=== PATIENT | female | born 1980 | race Hispanic/Latino ===

== ENCOUNTER 2023-12-21 00:50 | Emergency (ER) | payer MEDICARE, OTHER, SELFPAY ==
[2023-12-21 00:50] VITALS: BMI 28.9
[2023-12-21 00:57] VITALS: BP 108/74
[2023-12-21 01:37] VITALS: BP 104/67
[2023-12-21] MEDS: DILAUDID 1 MG IV ×2 (01:40→03:12)
[2023-12-21] MEDS: OMNIPAQUE 50 ML PO (01:41)
[2023-12-21] MEDS: PROTONIX IV 40 MG IV (01:41)
--- NOTE | 2023-12-21 01:41 | ED.GENMED ---
Addendum entered and electronically signed by Jayce Palma DO 12/21/23 05:17:
Update prior to discharge patient resting comfortably encouraged to follow-up with her specialist [facility]
Original Note:
History of Present Illness
General
Chief Complaint: Abdominal Symptoms
Source: patient and family
Exam Limitations: none
Time Seen by Provider: 12/21/23 01:15
Nursing documentation reviewed up to this point in time: agreed with
Travel History
Have you had any contact with someone who has COVID-19?: No
Do you have any symptoms of coronavirus? Fever > 100 degrees, chills, cough, shortness of breath, sore throat, loss of taste or smell, muscle aches, or headache?: No
History of Present Illness
History of Present Illness:
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
recommend she come to the closest ER she has had an appendectomy and cholecystectomy hysterectomy sounds like a perforation requiring surgery nondrinker non-smoker no fever or chills, no blood in her stool or vomit she is on multiple medications
chronically multiple allergies
Past History
Past History
ED Past Medical History: Other (Eosinophilic esophagitis gastroenteritis)
ED Past Surgical History: Appendectomy, Bowel resection, Cholecystectomy and Gynecological
Social History
Tobacco: Non-smoker
Personal:
Living: with family
Employment: Employed
Review of Systems
Review of Systems
All Other Systems: Not applicable
Phy Exam
Physical Exam
Physical Exam:
Physical Exam
General: 43 female looks uncomfortable
Neck: No jaundice
Heart: s1/s2 regular rate and rhythm, no murmur. equal radial pulses.
Lungs: no acute respiratory distress. clear bilaterally
Abdomen: Mild diffuse tenderness
Neuro: alert and oriented. no focal neurological deficits
Skin: no rash
Psychiatric: well kept. interactive and cooperative
Extremities: no edema.
Course
Orders/Labs/Results
Orders:
Orders
12/21/23 01:31
Urinalysis Reflex To Culture Urgent
Iohexol [Omnipaque] See Protocol PO NOW STA
12/21/23 01:32
CT Abd/pel W Iv And Oral Contr Urgent
Comment:
Reason For Exam: pain colitis
HYDROmorphone [Dilaudid] 1 mg IV NOW STA
Test Result ONCE
12/21/23 01:33
Pantoprazole [Protonix IV] 40 mg IV NOW STA
12/21/23 01:37
CRP [C-Reactive Protein] Urgent
Complete Blood Count/With Diff Urgent
Comprehensive Metabolic Panel Urgent
ESR [Erythrocyte Sed Rate] Urgent
HCG, Serum Qualitative Screen Urgent
Lipase Urgent
12/21/23 01:50
Ondansetron Injectable [Zofran] 8 mg IV NOW STA
12/21/23 01:51
Diphenhydramine [Benadryl] 50 mg IV NOW STA
Hydrocortisone Sod Succinate [Solu-Cortef] 100 mg IV NOW STA
12/21/23 03:06
HYDROmorphone [Dilaudid] 1 mg IV NOW STA
Abnormal Lab Results
12/21/23
01:37
Hct 36.3 L %
(37.0-47.0)
MPV 10.7 H fL
(7.4-10.4)
Glucose 129 H mg/dl
(70-99)
C-Reactive Protein 12.00 H mg/L
(0.0-10.00)
12/21/23 01:37
12/21/23 01:37
Vital Signs
Initial and Last Documented VS:
Initial Vital Signs
Temp Pulse Resp BP Pulse Ox
98.2 F 79 18 108/74 99
12/21/23 00:57 12/21/23 00:57 12/21/23 00:57 12/21/23 00:57 12/21/23 00:57
Last Documented Vital Signs
Temp Pulse Resp BP Pulse Ox
98.2 F 79 17 109/73 99
12/21/23 00:57 12/21/23 03:15 12/21/23 03:15 12/21/23 03:00 12/21/23 00:57
MDM/Problems Addressed
Differential Diagnosis Includes:
Gastroenteritis chronic pain colitis perforation
MDM/Problems Addressed:
Abdominal pain
Chronic conditions affecting care: Previous abdomnial surgery
Acute Exacerbation and/or Progression of Chronic Illness: Previous abdomnial surgery
*Critical Care Note
Total Time (30-74mins, 75-104mins- exclusive of procedures): Not Applicable
Update Note
Update Note:
Update, labs and imaging noted
ED Attending Note
-
Portions of this chart may have been created with voice recognition software.� Occasional wrong word or��sound alike� substitutions may have occurred due to the inherent limitations of voice recognition software.
Discharge Plan
Departure
Patient Disposition: Home (Routine Discharge)
Date of Disposition: 12/21/23
Time of Disposition: 05:09
Patient with high blood pressure during this ER visit?: No
Condition: Good
Discharge Problem:
Abdominal pain
Instructions: Abdominal Pain
Referrals:
Bret Church MD [Family Provider] - Next open appointment
Activity Restrictions/Additional Instructions:
Your blood work and CAT scan showed no acute abnormalities
Follow-up with your specialist at [place] and/or [facility]
Interventions
Interventions:
*Risk Screen - Suicide Last Done: 12/21/23 01:50
*General Assessment Last Done: 12/21/23 01:50
*Neglect/Abuse Screening Last Done: 12/21/23 01:50
*ED COVID-19 Vaccine History Last Done: 12/21/23 01:50
AQ-Gykxza-Guwkekxxiw Assessment Last Done: 12/21/23 01:50
[2023-12-21 01:47] LABS: % Eosinophils 1.6 % (0-6); % Immature Granulocytes 0.1 % (0-0.5); % Lymphocytes 43.5 % (20.5-51.1); % Neutrophils 46.8 % (42.2-75.2); Absolute Basophils 0.1 10^3/uL (0-0.2); Absolute Eosinophils 0.1 10^3/uL (0-0.7); Absolute Monocytes 0.5 10^3/uL (0.1-0.6); Absolute Neutrophils 3.2 10^3/uL (1.4-6.5); Hematocrit 36.3 % (37.0-47.0); Hemoglobin 12.8 g/dL (12.0-16.0); Mean Corp Hgb Conc. 35.3 g/dL (33.0-37.0); Mean Corpuscular Hgb 30.2 pg (27.0-31.0); Mean Corpuscular Volume 85.6 fL (81.0-99.0); Mean Platelet Volume 10.7 fL (7.4-10.4); Nucleated Red Blood Cells % 0 %; Platelet Count 351 10^3/uL (130-400); Red Blood Cell Count 4.24 10^6/uL (4.20-5.40); Red Cell Dist. Width 12.1 % (11.5-14.5); White Blood Cell Count 6.9 10^3/uL (4.8-10.8)
[2023-12-21 02:00] VITALS: BP 110/70
[2023-12-21] MEDS: ZOFRAN 8 MG IV (02:00)
[2023-12-21 02:02] LABS: ALT (SGPT) 23 U/L (0-35); AST (SGOT) 23 U/L (14-36); Albumin 4.3 g/dl (3.5-5.0); Alkaline Phosphatase 111 U/L (38-126); Blood Urea Nitrogen 12 mg/dl (7-17); Calcium 9.3 mg/dl (8.4-10.2); Carbon Dioxide 25 mmol/L (22-30); Chloride 107 mmol/L (98-107); Estimated Creatinine Clearance 121 ml/min; Glucose 129 mg/dl (70-99); Lipase 68 U/L (23-300); Potassium 3.9 mmol/L (3.5-5.1); Sodium 139 mmol/L (135-145); Total Bilirubin 0.4 mg/dl (0.2-1.3); Total Protein 7.3 g/dl (6.3-8.2); eGFR > 60.00
[2023-12-21 02:03] LABS: HCG, Serum Qualitative Screen Negative
[2023-12-21 02:18] LABS: Erythrocyte Sed Rate 20 mm/hour (0-20)
[2023-12-21] MEDS: SOLU-CORTEF 100 MG IV (02:57)
[2023-12-21] MEDS: BENADRYL 50 MG IV (02:58)
[2023-12-21 03:00] VITALS: BP 109/73
[2023-12-21 05:00] VITALS: BP 113/65
== END 2023-12-21 05:40 | disposition home or self-care (01) ==
LOC: EMR 00:50
PROVIDERS: EMERGENCY PHYSICIAN Emergency Medicine; FAMILY PHYSICIAN Internal Medicine
DX: R10.9 Unspecified abdominal pain (principal)
CPT/HCPCS: 99285; 96374; 96375 ×4; 96376; 74177; 80053; 83690; 84703; 85025; 85652; 86140; Q9967

== ENCOUNTER 2024-02-27 06:43 | Inpatient (IN) | payer MEDICARE, OTHER, SELFPAY ==
[2024-02-26 23:00] LABS: % Basophils 0.7 % (0-2); % Eosinophils 0.9 % (0-6); % Immature Granulocytes 0.2 % (0-0.5); % Lymphocytes 23.6 % (20.5-51.1); % Monocytes 6.5 % (1.7-9.3); % Neutrophils 68.1 % (42.2-75.2); Absolute Basophils 0.1 10^3/uL (0-0.2); Absolute Eosinophils 0.1 10^3/uL (0-0.7); Absolute Lymphocytes 2.9 10^3/uL (1.2-3.4); Absolute Monocytes 0.8 10^3/uL (0.1-0.6); Absolute Neutrophils 8.2 10^3/uL (1.4-6.5); Hematocrit 33.1 % (37.0-47.0); Hemoglobin 11.6 g/dL (12.0-16.0); Mean Corpuscular Hgb 30.4 pg (27.0-31.0); Mean Corpuscular Volume 86.6 fL (81.0-99.0); Mean Platelet Volume 10.4 fL (7.4-10.4); Nucleated Red Blood Cells % 0 %; Platelet Count 378 10^3/uL (130-400); Red Blood Cell Count 3.82 10^6/uL (4.20-5.40); Red Cell Dist. Width 11.7 % (11.5-14.5); White Blood Cell Count 12.1 10^3/uL (4.8-10.8)
[2024-02-26 23:17] LABS: ALT (SGPT) 69 U/L (0-35); AST (SGOT) 107 U/L (14-36); Albumin 4.3 g/dl (3.5-5.0); Alkaline Phosphatase 144 U/L (38-126); Blood Urea Nitrogen 6 mg/dl (7-17); Calcium 9.4 mg/dl (8.4-10.2); Carbon Dioxide 25 mmol/L (22-30); Chloride 101 mmol/L (98-107); Glucose 172 mg/dl (70-99); Potassium 3.9 mmol/L (3.5-5.1); Sodium 137 mmol/L (135-145); Total Bilirubin 0.6 mg/dl (0.2-1.3); Total Protein 7.3 g/dl (6.3-8.2); eGFR > 60.00
[2024-02-27] VITALS (19 sets, daily range): BP systolic 97–127; BP diastolic 60–82; BMI 30.3; BMI 30.1
[2024-02-27 00:35] LABS: HCG, Serum Qualitative Screen Negative
[2024-02-27 00:42] LABS: Lipase 56 U/L (23-300)
[2024-02-27 00:45] LABS: Urine Albumin Negative (Neg - Trace); Urine Bilirubin Negative (Negative); Urine Character Clear (Clear); Urine Color Yellow; Urine Glucose Negative (Negative); Urine Ketone Negative (Negative); Urine Leukocyte Trace (Negative); Urine Nitrite Negative (Negative); Urine Occult Blood Trace (Negative); Urine Specific Gravity 1.005 (<1.030); Urine Urobilinogen Negative (Neg - 1+); Urine pH 6.5 (5.0-9.0)
--- NOTE | 2024-02-27 01:09 | ED.GENMED ---
History of Present Illness
<Jimi Sage, DO - Last Filed: 02/27/24 01:17>
General
Chief Complaint: Abdominal Pain
Source: patient and spouse
Exam Limitations: none
Time Seen by Provider: 02/27/24 00:19
Nursing documentation reviewed up to this point in time: agreed with
Travel History
Have you had any contact with someone who has COVID-19?: No
Do you have any symptoms of coronavirus? Fever > 100 degrees, chills, cough, shortness of breath, sore throat, loss of taste or smell, muscle aches, or headache?: No
History of Present Illness
History of Present Illness:
43-year-old female presents emergency room complaining of severe abdominal pain since last night. She has a history of Crohn's and ulcers, and is scheduled for a bowel resection in March at [facility]. She called her team at
[facility] and was told to go to the emergency emergency department.
<Mariel Sam, DO - Last Filed: 02/27/24 07:55>
History of Present Illness
History of Present Illness:
43-year-old female presents emergency room complaining of severe abdominal pain since last night. She has a history of eosinophilic gastritis and ulcers, and is scheduled for a bowel resection in March at [facility]. She called her
team at [facility] and was told to go to the emergency emergency department.
Past History
<Jimi Sage, DO - Last Filed: 02/27/24 01:17>
Past History
ED Past Medical History: Other (Eosinophilic esophagitis gastroenteritis)
ED Past Surgical History: Appendectomy, Bowel resection, Cholecystectomy and Gynecological
Social History
Tobacco: Non-smoker
Personal:
Living: with family
Employment: Employed
Review of Systems
<Jimi Sage, DO - Last Filed: 02/27/24 01:17>
Review of Systems
Allergies reviewed?: Yes
All Other Systems: Not applicable
Constitutional: Reports no symptoms
EENT: Reports no symptoms
Respiratory: Reports no symptoms
Cardiac: Reports no symptoms
ABD/GI: Reports abdominal pain and vomiting
: Reports no symptoms
Musculoskeletal: Reports no symptoms
Skin: Reports no symptoms
Neurological: Reports no symptoms
Endocrine: Reports no symptoms
Hematologic/Lymphatic: Reports no symptoms
Psychiatric: Reports no symptoms
Phy Exam
<Jimi Sage, DO - Last Filed: 02/27/24 01:17>
Physical Exam
Physical Exam:
Physical Exam
General: Appears uncomfortable, afebrile
Neck: supple. no meningeal signs. normal posterior pharynx
Heart: s1/s2 regular rate and rhythm, no murmur. equal radial
pulses.
HEENT: Pupils equal round reactive to light, EOMI
Lungs: no acute respiratory distress. clear bilaterally
Abdomen: normal bowel sounds. Diffuse tenderness palpation, worse in lower quadrant. No CVAT
Neuro: alert and oriented. no focal neurological deficits cranial nerves II through XII intact
Skin: no rash
Psychiatric: well kept. interactive and cooperative
Extremities: no edema. no calf tenderness. negative homans. good distal pulses
Course
<Jimi Sage, DO - Last Filed: 02/27/24 01:17>
Orders/Labs/Results
Orders:
Orders
02/26/24 22:53
Complete Blood Count/With Diff Urgent
Comprehensive Metabolic Panel Urgent
HCG, Serum Qualitative Screen Urgent
Lipase Urgent
Comment: ADDED
Blood Culture Urgent
BHAVIK Source: Blood/Venous
Specimen Description:
02/27/24 00:04
Add On- LAB Urgent
Tests Added?: lipase
02/27/24 00:24
Add On- LAB Urgent
Tests Added?: hcg qualitative
02/27/24 00:26
UA Reflex to Culture [Urinalysis Reflex To Culture] Urgent
Date Specimen was Collected: 02/27/24
Time Specimen was Collected: 00:24
Urine Microscopic Reflex Cult Urgent
Urine Culture Urgent
BHAVIK Source: U
Specimen Description:
Date Specimen was Collected: 02/27/24
Time Specimen was Collected: 00:24
02/27/24 01:07
0.9% Sodium Chloride 1000 ml [Nss] 1,000 ml IV BOLUS
HYDROmorphone [Dilaudid] 0.5 mg IV NOW STA
Iohexol [Omnipaque] See Protocol PO NOW STA
02/27/24 01:08
CT Abd/pel W Iv And Oral Contr Urgent
Comment:
Reason For Exam: lower abdominal pain, crohns
02/27/24 01:16
Diphenhydramine [Benadryl] 25 mg IV NOW STA
02/27/24 01:31
Ondansetron Injectable [Zofran] 4 mg .ROUTE .STK-MED ONE
02/27/24 01:35
Ondansetron Injectable [Zofran] 4 mg IV NOW STA
02/27/24 01:56
HYDROmorphone [Dilaudid] 1 mg IV NOW STA
02/27/24 03:45
Hydrocortisone Sod Succinate [Solu-Cortef] 100 mg IV NOW STA
02/27/24 05:23
0.9% Sodium Chloride 1000 ml [Nss] 1,000 ml IV 200 mls/hr
HYDROmorphone [Dilaudid] 1 mg IV NOW STA
Pantoprazole 80 mg/100 ml Nss [Protonix] 80 mg in 100 ml IV NOW
Pantoprazole [Protonix IV] 80 mg IV NOW STA
02/27/24 06:27
Admit/Transfer Patient As Directed
Co-Sign Provider:
Level of Care: Inpatient admission
Assign to:: IMU- Intermediate Care
Physician / Group: Shashank
Diagnosis: Gastritis / Perforated Gastric Ulcer
Reason for Hospitalization: Gastritis / Perforated Gastric Ulcer
Expected length of stay greater than two midnights?: Yes
ELOS- Estimated Length of Stay in days: 4
I certify the patient meets the requirements for IP care: Yes
02/27/24 06:29
Code Status As Directed
Resuscitation Status: Full Code
02/27/24 07:17
HYDROmorphone [Dilaudid] 1 mg IV Q4HPRN PRN
Lactated Ringers [Lr] 1,000 ml IV 100 mls/hr
Ondansetron Injectable [Zofran] 4 mg IV Q6HPRN PRN
02/27/24 07:17
GASTROINTESTINAL CONSULT Routine
Consulting Provider: Aníbal Mcghee
Was physician already notified: Yes
Reason for consult: Severe gastritis / perf ulcer
SURGICAL CONSULT Routine
Consulting Provider: Mendez Yost
Was physician already notified: Yes
Reason for consult: Gastric Ulcer / Contained perf
Activity As Directed
Activity Level: Ambulate
With Assistance
Bladder Scan As Directed
Follow Bladder Retention/Intermittent Cath Algorithm?: Yes
PRN if no void in __ hours: 6
Frequency: Per Retention Algorithm
If Bladder Scan Result >: 400
then:: Straight cath
EKG with chest pain [ECG as needed] As Directed
ECG as needed for:: Chest Pain
I/O [Intake/ Output] As Directed
Frequency: Per unit guidelines
Orthostatic Vital Signs As Directed
Orthostatic VS Frequency: BID
Pneumatic Compression Sleeves As Directed
Type: Knee high
Straight Cath As Directed
Frequency: Per Retention Algorithm
Additional Instructions: straight cath as needed per acute urinary retention algorithm for 24 hrs
Additional Instructions: for bladder scan greater than 400 mL
Vital Signs As Directed
Frequency: Per unit guidelines
Weight As Directed
Frequency: Daily
Oxygen Therapy [O2 Therapy] [RESP] Routine
Titrate/Wean O2 to maintain O2 sat greater than (%): 94
DX Deep Vein Thrombosis Video Routine
02/27/24 16:00
Pantoprazole 80 mg/100 ml Nss [Protonix] 80 mg in 100 ml IV Q10H
02/28/24 Breakfast
NPO
Allow oral meds: Yes
Allow clear liquids: Sips of Clears
Basic Metabolic Panel IN AM
Complete Blood Count/No Diff IN AM
LFT [[id number]-Weww-Jwolwwx] IN AM
Abnormal Lab Results
02/26/24 02/27/24
22:53 00:26
WBC 12.1 H 10^3/uL
(4.8-10.8)
RBC 3.82 L 10^6/uL
(4.20-5.40)
Hgb 11.6 L g/dL
(12.0-16.0)
Hct 33.1 L %
(37.0-47.0)
Absolute Neuts (auto) 8.2 H 10^3/uL
(1.4-6.5)
Absolute Monos (auto) 0.8 H 10^3/uL
(0.1-0.6)
BUN 6 L mg/dl
(7-17)
Glucose 172 H mg/dl
(70-99)
AST 107 H U/L
(14-36)
ALT 69 H U/L
(0-35)
Alkaline Phosphatase 144 H U/L
(38-126)
Ur Occult Blood Reflex Trace A
(Negative)
Leukocyte Esterase Rfl Trace A
(Negative)
Urine Bacteria (Reflex) Moderate A
(Negative)
02/26/24 22:53
02/26/24 22:53
Vital Signs
Initial and Last Documented VS:
Initial Vital Signs
Temp Pulse Resp Pulse Ox
98.5 F 79 18 97
02/26/24 22:45 02/26/24 22:45 02/26/24 22:45 02/26/24 22:45
Last Documented Vital Signs
Temp Pulse Resp BP Pulse Ox
98.3 F 68 16 119/80 96
02/27/24 07:19 02/27/24 07:30 02/27/24 07:19 02/27/24 07:19 02/27/24 07:30
<Mariel Sam, DO - Last Filed: 02/27/24 07:55>
Orders/Labs/Results
Orders:
Orders
02/26/24 22:53
Complete Blood Count/With Diff Urgent
Comprehensive Metabolic Panel Urgent
HCG, Serum Qualitative Screen Urgent
Lipase Urgent
Comment: ADDED
Blood Culture Urgent
BHAVIK Source: Blood/Venous
Specimen Description:
02/27/24 00:04
Add On- LAB Urgent
Tests Added?: lipase
02/27/24 00:24
Add On- LAB Urgent
Tests Added?: hcg qualitative
02/27/24 00:26
UA Reflex to Culture [Urinalysis Reflex To Culture] Urgent
Date Specimen was Collected: 02/27/24
Time Specimen was Collected: 00:24
Urine Microscopic Reflex Cult Urgent
Urine Culture Urgent
BHAVIK Source: U
Specimen Description:
Date Specimen was Collected: 02/27/24
Time Specimen was Collected: 00:24
02/27/24 01:07
0.9% Sodium Chloride 1000 ml [Nss] 1,000 ml IV BOLUS
HYDROmorphone [Dilaudid] 0.5 mg IV NOW STA
Iohexol [Omnipaque] See Protocol PO NOW STA
02/27/24 01:08
CT Abd/pel W Iv And Oral Contr Urgent
Comment:
Reason For Exam: lower abdominal pain, crohns
02/27/24 01:16
Diphenhydramine [Benadryl] 25 mg IV NOW STA
02/27/24 01:31
Ondansetron Injectable [Zofran] 4 mg .ROUTE .STK-MED ONE
02/27/24 01:35
Ondansetron Injectable [Zofran] 4 mg IV NOW STA
02/27/24 01:56
HYDROmorphone [Dilaudid] 1 mg IV NOW STA
02/27/24 03:45
Hydrocortisone Sod Succinate [Solu-Cortef] 100 mg IV NOW STA
02/27/24 05:23
0.9% Sodium Chloride 1000 ml [Nss] 1,000 ml IV 200 mls/hr
HYDROmorphone [Dilaudid] 1 mg IV NOW STA
Pantoprazole 80 mg/100 ml Nss [Protonix] 80 mg in 100 ml IV NOW
Pantoprazole [Protonix IV] 80 mg IV NOW STA
02/27/24 06:27
Admit/Transfer Patient As Directed
Co-Sign Provider:
Level of Care: Inpatient admission
Assign to:: IMU- Intermediate Care
Physician / Group: Shashank
Diagnosis: Gastritis / Perforated Gastric Ulcer
Reason for Hospitalization: Gastritis / Perforated Gastric Ulcer
Expected length of stay greater than two midnights?: Yes
ELOS- Estimated Length of Stay in days: 4
I certify the patient meets the requirements for IP care: Yes
02/27/24 06:29
Code Status As Directed
Resuscitation Status: Full Code
02/27/24 07:17
HYDROmorphone [Dilaudid] 1 mg IV Q4HPRN PRN
Lactated Ringers [Lr] 1,000 ml IV 100 mls/hr
Ondansetron Injectable [Zofran] 4 mg IV Q6HPRN PRN
02/27/24 07:17
GASTROINTESTINAL CONSULT Routine
Consulting Provider: Aníbal Mcghee
Was physician already notified: Yes
Reason for consult: Severe gastritis / perf ulcer
SURGICAL CONSULT Routine
Consulting Provider: Mendez Yost
Was physician already notified: Yes
Reason for consult: Gastric Ulcer / Contained perf
Activity As Directed
Activity Level: Ambulate
With Assistance
Bladder Scan As Directed
Follow Bladder Retention/Intermittent Cath Algorithm?: Yes
PRN if no void in __ hours: 6
Frequency: Per Retention Algorithm
If Bladder Scan Result >: 400
then:: Straight cath
EKG with chest pain [ECG as needed] As Directed
ECG as needed for:: Chest Pain
I/O [Intake/ Output] As Directed
Frequency: Per unit guidelines
Orthostatic Vital Signs As Directed
Orthostatic VS Frequency: BID
Pneumatic Compression Sleeves As Directed
Type: Knee high
Straight Cath As Directed
Frequency: Per Retention Algorithm
Additional Instructions: straight cath as needed per acute urinary retention algorithm for 24 hrs
Additional Instructions: for bladder scan greater than 400 mL
Vital Signs As Directed
Frequency: Per unit guidelines
Weight As Directed
Frequency: Daily
Oxygen Therapy [O2 Therapy] [RESP] Routine
Titrate/Wean O2 to maintain O2 sat greater than (%): 94
DX Deep Vein Thrombosis Video Routine
02/27/24 16:00
Pantoprazole 80 mg/100 ml Nss [Protonix] 80 mg in 100 ml IV Q10H
02/28/24 Breakfast
NPO
Allow oral meds: Yes
Allow clear liquids: Sips of Clears
Basic Metabolic Panel IN AM
Complete Blood Count/No Diff IN AM
LFT [Pprva-Hdhl-Tqnwfjq] IN AM
Abnormal Lab Results
02/26/24 02/27/24
22:53 00:26
WBC 12.1 H 10^3/uL
(4.8-10.8)
RBC 3.82 L 10^6/uL
(4.20-5.40)
Hgb 11.6 L g/dL
(12.0-16.0)
Hct 33.1 L %
(37.0-47.0)
Absolute Neuts (auto) 8.2 H 10^3/uL
(1.4-6.5)
Absolute Monos (auto) 0.8 H 10^3/uL
(0.1-0.6)
BUN 6 L mg/dl
(7-17)
Glucose 172 H mg/dl
(70-99)
AST 107 H U/L
(14-36)
ALT 69 H U/L
(0-35)
Alkaline Phosphatase 144 H U/L
(38-126)
Ur Occult Blood Reflex Trace A
(Negative)
Leukocyte Esterase Rfl Trace A
(Negative)
Urine Bacteria (Reflex) Moderate A
(Negative)
02/26/24 22:53
02/26/24 22:53
Vital Signs
Initial and Last Documented VS:
Initial Vital Signs
Temp Pulse Resp Pulse Ox
98.5 F 79 18 97
02/26/24 22:45 02/26/24 22:45 02/26/24 22:45 02/26/24 22:45
Last Documented Vital Signs
Temp Pulse Resp BP Pulse Ox
98.3 F 68 16 119/80 96
02/27/24 07:19 02/27/24 07:30 02/27/24 07:19 02/27/24 07:19 02/27/24 07:30
<Mariel Sam, DO - Last Filed: 02/27/24 07:55>
*Radiology
Radiology exam reviewed: radiology read reviewed
*Pulse Oximetry
Patient hypoxic: no
*Critical Care Note
Total Time (30-74mins, 75-104mins- exclusive of procedures): Not Applicable
<Mariel Sam DO - Last Filed: 02/27/24 07:55>
Update Note
Update Note:
02/27/2024 0519 AM
CAT scan shows severe gastritis with likely a contained ulcer perforation versus impending perforation along the lesser curvature. There is no free air nor free fluid.
Patient has history of eosinophilic gastritis and prior history of perforated peptic ulcer 1 year ago. She has history of chronic gastric/esophageal strictures with thus far no improvement with esophageal/gastric dilation procedures most recently
October 2023.
She is scheduled for gastric surgery/gastric bypass procedure and PEG tube placement next month at [facility].
She presents with significant increased pain and intractable vomiting over the past 24 hours unrelieved with oxycodone and Zofran.
Her daily medications include: Esomeprazole twice daily, Zofran, oxycodone 10 mg 3 times daily, baclofen, doxepin, Cymbalta, Lyrica, Seroquel, Latuda, Rixulti.
Will initiate Protonix bolus and drip, continue IV fluids, continue pain medications and plan to admit to hospitalist service.
Patient will likely require GI evaluation/general surgery evaluation but at this point there is no definitive evidence of perforation.
ED Attending Note
<Jimi Sage, DO - Last Filed: 02/27/24 01:17>
-
Portions of this chart may have been created with voice recognition software.� Occasional wrong word or��sound alike� substitutions may have occurred due to the inherent limitations of voice recognition software.
Discharge Plan
Departure
Patient Disposition: Admit
Date of Disposition: 02/27/24
Time of Disposition: 05:24
Admit to: Med/Surg
Admit to doctor: Shashank
Presentation/result/management discussed w/ accepting MD/DO: Hospitalist
Condition: Serious
Discharge Problem:
severe gastritis with ulcer, Exacerbation of eosinophilic gastritis, peptic ulcer concern for impending perf
Interventions
Interventions:
*Risk Screen - Suicide Last Done: 02/27/24 00:27
*General Assessment Last Done: 02/27/24 00:27
*Neglect/Abuse Screening Last Done: 02/27/24 00:27
ED- Fall Risk Assessment Last Done: 02/27/24 00:39
*ED COVID-19 Vaccine History Last Done: 02/27/24 00:27
FX-Xziptn-Rvdzyzmcal Assessment Last Done: 02/27/24 07:19
[2024-02-27 01:16] LABS: Urine Squamous Cell >30 /LPF (Few)
[2024-02-27 01:17] LABS: Urine Bacteria Moderate (Negative); Urine Red Blood Cell 0-2 /HPF (0-2)
[2024-02-27] MEDS: DILAUDID 0.5 MG IV (01:28)
[2024-02-27] MEDS: BENADRYL 25 MG IV (01:28)
[2024-02-27] MEDS: NSS 1000 IV ×2 (01:29→06:00)
[2024-02-27] MEDS: ZOFRAN 4 MG IV ×4 (01:35→22:53)
[2024-02-27] MEDS: OMNIPAQUE 50 ML PO (01:37)
[2024-02-27] MEDS: DILAUDID 1 MG IV ×6 (01:59→22:51)
[2024-02-27] MEDS: SOLU-CORTEF 100 MG IV (03:53)
[2024-02-27] MEDS: PROTONIX IV 80 MG IV (05:44)
[2024-02-27] MEDS: PROTONIX 100 IV ×3 (06:00→16:41)
--- NOTE | 2024-02-27 06:38 | HPS.HSE ---
Family Physician
-
Family Physician: Bret Church MD
Chief Complaint
-
Abd pain
History of Present Illness
Patient is a 43y F with PMH significant for eosinophilic gastritis, prior perforate peptic ulcers and Bipolar / schizophrenia who presents to ED complaining of abdominal pain. Patient states that symptoms initially started on Saturday evening
after dinner. She was able to get to sleep, but pain was still present in the AM and persisted throughout the day. Pain was much more severe this evening and patient presented to the ED for evaluation.
Patient states that she has been having N/V for the past 2 months. This is reportedly due to gastric outlet obstruction from prior surgery / gastritis / etc.
Patient has history of perforated gastric ulcers (x 2) in 09/2022 requiring surgical repair ([facility]). She has since been followed at [facility].
Most recently, she has had N/V as noted above and states that she is scheduled for surgery on March [address] Tristan Forrest.
Patient denies any bloody emesis. No black, tarry stools or grossly bloody stools.
Medical History
Past Medical History
Past Medical History: Reports Other
Additional Past Medical History:
Eosinophilic Gastritis / Esophagitis
History of Perforated Gastric Ulcers (09/2022)
Bipolar Disorder
Schizophrenia
Fibromyalgia
Endometriosis
Past Surgical History: Reports Other
Additional Past Surgical History:
Perforate Gastric Ulcer Repair (09/2022)
JORGE
Appendectomy
Cholecystectomy
Social History
Tobacco: Former Smoker (Quit smoking 09/2022.)
Alcohol: None
Drug: None
Family History
Family History: Not pertinent
Allergies / Home Medications
Allergies reflects when Allergies were last updated in [employer].
Home Medications with original date entered in [employer]
Allergy/Medication List:
Patient cannot recall her current doses of medications. Her med list without dose / frequency is as follows:
Doxepin
Rexulti
Latuda
Seroquel
Esomeprazole 40mg PO BID
Zofran
Oxycodone 10mg PO TID
Baclofen
Lyrica
Cymbalta
If medication reconciliation has not been performed, why?: Medication List N/A (Patient cannot recall doses.)
Review of Systems
-
History Source: Patient
A 12 point ROS was completed and negative except as noted: Yes
Constitutional: Reports Fatigue; Denies Fever or Chills
Respiratory: Denies Cough or Trouble Breathing
Cardiac: Denies Chest Pain or Palpitations
Abdomen/GI: Reports Abdominal Pain, Nausea, Vomiting and Anorexia; Denies Diarrhea, Constipated, Bloody Stools or Black Stools
: Denies Dysuria or Frequency
Musculoskeletal: Denies Joint Pain or Edema
Neurological: Reports Dizzy; Denies Headache, Weakness or Numbness
Psych: Denies Depression or Anxiety
Physical Exam
Vital Signs
Vital Signs
Temp Pulse Resp BP Pulse Ox
98.5 F 79 18 121/82 94
02/26/24 22:45 02/26/24 22:45 02/26/24 22:45 02/27/24 06:00 02/27/24 06:00
Physical Exam
General: Other (43y F in mild distress due to pain.)
HEENT: Moist mucous membranes and PERRLA
Respiratory: Clear; No Wheezes, Rales or Rhonchi
Cardiac: S1/S2 and Regular Rhythm; No Murmur
GI: Other (Soft, pos tenderness across upper abdomen with voluntary guarding. No rebound. Bowel sounds are present.)
Musculoskeletal: No Clubbing, No Cyanosis and No Edema
Neuro: AO x 3
Laboratory Results
-
02/26/24 22:53
04/17/24 22:53
Laboratory Results
Total Bilirubin 0.6 mg/dl (0.2-1.3) 02/26/24 22:53
AST 107 U/L (14-36) H 02/26/24 22:53
ALT 69 U/L (0-35) H 02/26/24 22:53
Alkaline Phosphatase 144 U/L (38-126) H 02/26/24 22:53
Lipase 56 U/L (23-300) 02/26/24 22:53
Impression/Plan
-
A/P: Patient is a 43y F with PMH significant for eosinophilic esophagitis / gastritis who presents to ED complaining of severe abdominal pain x 24 hours.
Severe Gastritis
Gastric Ulcer with Contained / Small Perforation
Eosinophilic Esophagitis / Gastritis
- Admit to IMU for further evaluation and treatment.
- Strict NPO.
- IVF support, pain control, IV PPI infusion.
- GI and Surgery consulted.
- With previous known issues (see below) - ? transfer to [facility] s/o Dr. Forrest, especially if intervention is deemed necessary.
- Follow for any new / worsening symptoms.
Gastric Outlet Obstruction
Persistent / Chronic N/V
- Patient notes gastric outlet narrowing secondary to eosinophilic inflammation as well as post-surgical changes / scarring from prior surgery / perforated ulcers.
- Scheduled for surgery at [facility] on March [address] Tristan Forrest.
Mental Health
- Various diagnoses including schizophrenia, bipolar disorder, major depression, etc.
- Hold all PO medications acutely given ulceration / likely perforation.
- Resume PO meds when appropriate to do so.
Chronic Pain Syndrome
Fibromyalgia
Chronic Opioid Dependence
- As noted above - holding all PO medications.
- IV narcotics as needed for acute pain.
- Resume PO regimen when appropriate to do so.
DVT Prophylaxis: SCDs
Code Status: Full
--- NOTE | 2024-02-27 07:23 | EDRN ---
the pt was received by previous cooky packer RN, the pt is resting in stretcher in the lowest position, side rails up x2, call hu within reach, HOB elevated, the pts is currently at the pts bedside, VS WNL, the pt c/o left lower abdominal
pain, this RN called pharmacy and notified them that admission orders were processed, this RN asked the pt if she knows what prescription medications she takes and the pt stated that she does know them however she does not know the dosages, this RN
will notify pharmacy when they arrive, the pt has a LAC #20 PIV and the pt currently has Protonix gtt currently running at 8mg/hour and the pt has IVF's running, the pt is able to ambulate to the bathroom x1 assist, will continue to monitor the pt
closely
[2024-02-27] MEDS: LR 1000 IV ×2 (08:19→21:26)
--- NOTE | 2024-02-27 08:54 | CON.GI ---
Consultation
-
Date/Time Consultation Requested: 02/27/24
Date/Time Consultation Performed: 02/27/24
Requesting Provider: Federico Encarnacion
Performing Provider: Adrianne Mendoza
Reason for Consultation: Perforated gastric ulcer
Medical History
Chief Complaint / HPI
Chief Complaint: Abdominal pain
History of Present Illness:
Izzy is a 43-year-old female with past medical history of bipolar/schizophrenia, eosinophilic gastritis, history of perforated peptic ulcers who presents with abdominal pain, with imaging concerning for contained perforation. She reports prior
gastric ulcers x 2 in September 2022 requiring surgical repair (alan patch), this was performed at [facility]. She now follows at [facility], states she has been having nausea and vomiting for the last 2 months, given a diagnosis of gastric
outlet obstruction with plans for surgery by Dr. Tristan Forrest scheduled for March 25. CAT scan from 12/21/2023 shows a small umbilical hernia containing a loop of unremarkable bowel. Prior cholecystectomy. Mild biliary tract prominence likely
sequela of prior cholecystectomy. Prior hysterectomy and appendectomy. Limited evaluation due to lack of oral contrast.
She does not recall where/when she was given a dx of eosinophilic gastritis, reports that her daughter has eosinophilic esophagitis. States the only tx she has been given for this is PPI, carafate, zofran. Denies ever being treated with steroids in
the past for this. Denies EtoH, drug use or NSAID use. Reports taking Tylenol on a daily basis-- typically 1-2 tablets of 650 mg daily. She is also on chronic opioids for chronic pain/fibromyalgia.
Labs on arrival with mild leukocytosis of 12.1, hemoglobin 11.6, MCV 86.6, platelets 378, BUN 6, creatinine 0.6,, AST 107, ALT 69, alkaline phosphatase 144, normal total bilirubin. Of note she had normal LFTs on 12/21/2023.
CT A/P w/ PO and IV contrast: Moderate bowel wall thickening at the body and antrum measuring up to 1 cm in diameter w/ moderate inflammatory stranding in adjacent fat. There is an extraluminal collection along the lesser curvature of the antrum of
the stomach c/w abscess, which could be in setting of perforated ulcer. There is also a curvilinear gas collection @ the duodenal bulb which appears intraluminal and may reflect site of ulceration. Evidence of cholecystectomy. 2 cm umbilical hernia
which contains a loop of small bowel w/o associated obstruction or strangulation.
Unable to see reports in chart from prior GI workup, however, patient was able to access her [facility] portal on her phone and allowed me to document pertinent information:
EGD (10/2023): Normal esophagus. Small amount of food residue in stomach. Gastric stenosis was found at the pylorus, this was dilated. Biopsies from small intestine were normal. Biopsies taken from the stomach showed moderate chronic gastritis,
focally active, negative for HP and IM. No evidence of eosinophils..
EGD (01/2023): Need report-- similar to above
UGI series (03/07/23): Abnromal esohpageal peristalsis with stasis of contrast in the thoracic esophagus. Small volume of spontaneous gastroesophageal reflux. Large amount of debris is sesen in the stomach. There is a short segment stricutre at the
pylori-duodenal junction measuring at most 3 mm in length with an opening measuring approx. 4 mm which correlates to the pyloric stricture found on EGD. The stricture causes rapid post-stenotic flow. The duodenojejunal junction is normal in anatomic
location. Gastric emptying is substanially delayed.
MRI Abdomen/Pelvis (04/01/23):benign hepatic shunts and geographic focal steatosis. Space-occupying hepatic masses excluded. Moderate diffuse hepatic steatosis.
Past Medical History
Past Medical History: Fibromyalgia, Psychiatric and Other
Past Surgical History: Appendectomy, Cholecystectomy and Gynecological
Social History
Tobacco: Former Smoker
Alcohol: None
Drug: None
Family History
Family History: Other (Daughter with EoE)
Allergies / Home Medications
Allergy/AdvReac Type Severity Reaction Status Date / Time
metoclopramide [From Reglan] Allergy Itching Verified 12/21/23 00:57
Penicillins Allergy Swelling Verified 02/10/24 00:57
prochlorperazine Allergy Itching Verified 12/21/23 00:57
[From Compazine]
contrast dye Allergy Itching Uncoded 12/21/23 00:57
�Medication �Instructions �Recorded
acetaminophen 650 mg 650 mg PO BIDPRN PRN mild pain 02/27/24
tablet,extended release
albuterol sulfate 90 mcg/actuation 2 puff inhalation R Q4HPRN PRN 02/27/24
aerosol inhaler (Ventolin HFA) sob/wheezing
baclofen 10 mg tablet 10 mg PO TID 02/27/24
brexpiprazole 2 mg tablet (Rexulti) 2 mg PO BID 02/27/24
doxepin 100 mg capsule 100 mg PO BID 02/27/24
duloxetine 60 mg capsule,delayed 60 mg PO BID 02/27/24
release
esomeprazole magnesium 40 mg 40 mg PO DAILY 02/27/24
capsule,delayed release
fluticasone furoate 50 50 mcg inhalation R DAILY 02/27/24
mcg/actuation blister powder for
inhalation (Arnuity Ellipta)
lurasidone 60 mg tablet 60 mg PO HS 02/27/24
oxycodone 10 mg tablet 10 mg PO TID 02/27/24
pregabalin 150 mg capsule 150 mg PO TID 02/27/24
quetiapine 25 mg tablet 25 mg PO TID 02/27/24
Review of Systems
-
All other systems: A 12 pt ROS was Negative except as stated above in HPI
Vital Signs
Temp Pulse Resp BP Pulse Ox
98.3 F 78 16 127/79 97
02/27/24 07:19 02/27/24 08:15 02/27/24 07:19 02/27/24 08:00 02/27/24 08:15
Physical Exam
Exam
General: Well Developed, Well Nourished and Pain
HEENT: Normocephalic, Anicteric and Moist Mucous Membranes
Respiratory: Clear and Non Labored Respirations
Cardiac: S1/S2 and Regular Rhythm
Breast: Deferred by me
GI: Soft, Non Distended, Tender and Other (+TTP in epigastrium and LUQ, no rebound, +voluntary gaurding)
Skin: Warm and Dry
Neuro: AO x 3
Psych: Calm
Results
WBC 12.1 10^3/uL (4.8-10.8) H 02/26/24 22:53
Hgb 11.6 g/dL (12.0-16.0) L 02/26/24 22:53
Hct 33.1 % (37.0-47.0) L 02/26/24:53
MCV 86.6 fL (81.0-99.0) 02/26/24 22:53
Plt Count 378 10^3/uL (130-400) 02/26/24 22:53
Absolute Neuts (auto) 8.2 10^3/uL (1.4-6.5) H 02/26/24 22:53
Sodium 137 mmol/L (135-145) 02/26/24 22:53
Potassium 3.9 mmol/L (3.5-5.1) 02/26/24 22:53
Chloride 101 mmol/L (98-107) 02/26/24 22:53
Carbon Dioxide 25 mmol/L (22-30) 02/26/24 22:53
BUN 6 mg/dl (7-17) L 02/26/24 22:53
Creatinine 0.6 mg/dL (0.6-1.0) 02/26/24 22:53
Calcium 9.4 mg/dl (8.4-10.2) 02/26/24 22:53
Total Bilirubin 0.6 mg/dl (0.2-1.3) 02/26/24 22:53
AST 107 U/L (14-36) H 02/26/24 22:53
ALT 69 U/L (0-35) H 02/26/24 22:53
Alkaline Phosphatase 144 U/L (38-126) H 02/26/24 22:53
Lipase 56 U/L (23-300) 02/26/24 22:53
Diagnostic Image Results:
Prior GI Procedures:
EGD:
Colonoscopy:
Assessment / Plan
-
Izzy is a 43 y.o. female with pmhx PUD c/b perforation x2 s/p alan patch repair, pyloric stenosis s/p pyloric dilation, fatty liver, who presents with abdominal pain found to have a contained gastric perforation with small abscess.
#Contained gastric perforation, small abscess
-hx prior PUD w/ perforation s/p alan patch. Unclear if similar area of initial ulcer. If able to obtain records, this could be helpful
-transfer to tertiary care center ([facility]) when bed available
-recommend covering with broad spectrum abx
-No role for endoscopic intervention at this time
-General surgery is consulted
-continue PPI gtt
-NPO
#Elevated LFTs- hepatocellular pattern, AST > ALT
-Check EtoH level, check UDS
-check hemolysis labs, CK
-Prior MRI from patient's portal reviewed-- known benign hepatic shunts, severe hepatic steatosis; given age and potential concomitant autoimmune condition, would check autoimmune serologies
-check tylenol and salicylate level-- patient endorses daily tylenol but no more than 1300 mg daily
#Eosinophilic gastritis--questionable diagnosis, most recent gastric biopsies show gastritis
-it is unclear if she was ever given this diagnosis, no formal treatment was ever initiated and without evidence of eosinophils on most recent biopsies, I am not sure if this is accurate
-outpatient follow-up
#GOO?
-reported by patient, records reviewed, she has known pyloric stenosis, resulting in underlying dysmotility/gastroparesis type of picture
-s/p dilation without improvement, discussion with Dr. Forrest regarding surgical intervention-- prepyloric bypass. If no improvement with dilation, she would be unlikely to benefit from POEM and additionally, prior surgeries likely preclude her
from this as well
-no evidence of obstruction on imaging
Data Reviewed
-
Radiology: Report Reviewed by me
CT Scan: Report Reviewed by me
MRI: Report Reviewed by me
Old Records: Reviewed
-
-
Thank you for consultation and allowing me to participate in the patient's care. Please call the telephonic nurse case manager GI physician during the after hours with any questions or concerns.
--- NOTE | 2024-02-27 09:10 | EDRN ---
the pt pressed the call hu and stated that she needed to urinate,the pt was able to ambulate to the bathroom x1 assist, no c/o dizziness, no c/o lightheadedness, the pt was able to ambulate back to the stretcher with no issues, the pt is now
resting in stretcher in the lowest position, side rails up x2, call hu within reach, HOB elevated, no s/s of distress, the pt has no c/o nausea, c/o left sided abdominal pain 01/18, the pt currently has LR running at 100cc/hour and Protonix is
currently still running at 8mg/hour, will continue to monitor the pt closely
--- NOTE | 2024-02-27 09:58 | EDRN ---
GI currently at the pts bedside speaking with the pt and the pts
--- NOTE | 2024-02-27 10:22 | EDRN ---
this RN spoke with Dr. Elias who wants the pt to be Med Surg instead of IMU
--- NOTE | 2024-02-27 12:16 | EDRN ---
the pt is resting in stretcher in the lowest position, side rails up x2, call hu within reach, HOB elevated, no s/s of distress, VS WNL, the pt has been ambulating to and from the bathroom x1 assist, the pt currently still has Lactated Ringers and
Protonix gtt's infusing, still awaiting for a room for the pt, will continue to monitor the pt closely
--- NOTE | 2024-02-27 13:37 | EDRN ---
the pt was brought to ED Bed #18 and verbal report was given to the receiving nurse Kimberli PARKER
--- NOTE | 2024-02-27 14:13 | W.PN.HOSP.TC ---
Today's Communication/Plan
-
Bowel rest
IV fluids
IV PPI
IV antibiotics
GI/surgery evaluation
Assessment / Plan
Assessment / Plan
Impression:
Patient is a 43y F with PMH significant for eosinophilic esophagitis / gastritis who presents to ED complaining of severe abdominal pain x 24 hours.
Contained gastric ulcer perforation
Elevated LFTs, hepatocellular pattern
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
Concern for gastric outlet obstruction
Chronic pain syndrome
Psychiatric history including schizophrenia, bipolar disorder, major depression
Plan:
Severe gastritis.
Gastric ulcer with contained perforation, possible abscess
Hemodynamically stable, afebrile.
Eosinophilic esophagitis/gastritis with prior history of perforation
CT imaging reviewed with radiologist confirming contained perforation with no free air. Imaging not suggestive of gastric outlet obstruction
Discussed with gastroenterology.
Continue bowel rest
IV PPI
IV fluids
Analgesic regimen with opiates.
Add antibiotics/cefepime (penicillin allergy)
Surgery consultation
Primary surgery at [facility] Dr. Forrest. May require transfer if unfavorable progression and clinically necessary
Gastric outlet obstruction by history
Patient has a history of pyloric stenosis.
Current imaging not consistent with acute obstruction.
Patient is scheduled for pyloric bypass surgery at [facility] from March 25
Elevated LFTs, AST greater than ALT.
In review of prior imaging consistent with hepatic steatosis.
Agree with checking alcohol/Tylenol levels
Follow
Mental Health
- Various diagnoses including schizophrenia, bipolar disorder, major depression, etc.
- Hold all PO medications acutely given ulceration / likely perforation.
- Resume PO meds when appropriate to do so.
Chronic Pain Syndrome
Fibromyalgia
Chronic Opioid Dependence
- As noted above - holding all PO medications.
- IV narcotics as needed for acute pain.
- Resume PO regimen when appropriate to do so.
DVT Prophylaxis: SCDs
Anticipated Discharge: > 48 hours
Subjective/Interval History
-
Date of Service: February 27, 2024
Objective Data
-
Vital Signs:
Vital Signs
Temp Pulse Resp BP Pulse Ox
97.6 F 86 16 123/68 98
02/27/24 12:17 02/27/24 12:17 02/27/24 12:17 02/27/24 12:17 02/27/24 12:17
Physical Exam
-
General: Well Developed and No Apparent Distress
HEENT: Normocephalic, Atraumatic and Moist Mucous Membranes
Respiratory: Clear to Auscultation
Cardiac: Regular Rhythm and S1/S2; Negative Murmur, Rub or Gallop
GI: Soft, Nontender, Nondistended and Normal Bowel Sounds; Negative Organomegaly
Rectal: Deferred by Provider
Musculoskeletal: No Clubbing, No Cyanosis and No Edema
Skin: Negative Rash
Neuro: Nonfocal/Grossly Intact
[2024-02-27 15:23] LABS: Acetaminophen < 10 ug/ml (10-30); Creatine Phosphokinase 57 U/L (30-135); LDH 177 U/L (120-246); Salicylate < 1.0 mg/dl (2.0-20.0)
[2024-02-27 15:24] LABS: Alcohol None Detected
[2024-02-27] MEDS: MAXIPIME 2000 MG IV ×2 (16:56→23:36)
[2024-02-27] MEDS: STERILE WATER FOR INJECTION 10 ML IV ×2 (16:57→23:36)
[2024-02-27 17:16] LABS: Amphetamines Negative (Negative); Barbiturates Negative (Negative); Benzodiazepines Negative (Negative); Buprenorphine Negative (Negative); Cocaine Negative (Negative); Marijuana Positive (Negative); Methadone Negative (Negative); Methamphetamines Negative (Negative); Opiates Positive (Negative); Phencyclidine Negative (Negative); Tricyclic Antidepressants Positive (Negative)
[2024-02-27 17:31] LABS: Fentanyl, Urine Negative (Negative)
--- NOTE | 2024-02-27 18:39 | PTCARENOTE ---
Pt received from ED via wheelchair. Ambulated from wheelchair to standing scale and room with stand by assist of 1.
--- NOTE | 2024-02-27 19:47 | CON.GS ---
Consultation
-
Performing Provider: Aiden
Reason for Consultation: Contained perforated ulcer
Medical History
-
Chief Complaint: Abdominal pain, acute on chronic
History of Present Illness:
Patient is a 43-year-old female who has a known history of complicated peptic ulcer disease having undergone laparotomy, Sammy patch repair perforated gastric ulcer x 2 in 2021 at outside hospital. She has recovered from this but has had
subsequent development of a suspected peptic stricture. This has been apparently managed at [facility] for the past few months and she has undergone previous upper endoscopy with balloon dilation without significant improvement. She states that she
was scheduled to meet with her surgeon in early March with anticipated surgical management of her complicated peptic ulcer disease on 03/25/[address] [facility].
She reports a chronic history of left upper quadrant epigastric and back pain on a daily basis. It was stable for the past few weeks without any acute change. Over the past few days however she developed worsening abdominal pain particularly
overnight and in the left upper quadrant prompting emergency department evaluation. No fevers chills or sweats. She has had nausea with intermittent vomiting. She was found to have a suspected contained gastric perforation of her chronic ulcer
disease. Since admission overnight she states that she still has pain but she feels much better. She has not had any further nausea or vomiting. Pain is still localized to the epigastric and left upper quadrant and not generalized. No fevers
chills or sweats. Per
Past Medical History
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
Past Surgical History: Appendectomy, Cholecystectomy and Other (Exploratory laparotomy Sammy patch repair perforated gastric ulcers 2021)
Social History
Tobacco: Former Smoker
Alcohol: None
Family History
Family History: Reviewed & Not Pertinent
Allergies / Home Medications
Allergy/AdvReac Type Severity Reaction Status Date / Time
metoclopramide [From Reglan] Allergy Itching Verified 12/21/23 00:57
Penicillins Allergy Swelling, Verified 02/27/24 16:28
tolerates
amoxicillin
prochlorperazine Allergy Itching Verified 12/21/23 00:57
[From Compazine]
contrast dye Allergy Itching Uncoded 12/21/23 00:57
�Medication �Instructions �Recorded �Confirmed �Type
acetaminophen 650 mg 650 mg PO BIDPRN PRN mild pain 02/27/24 02/27/24 History
tablet,extended release
albuterol sulfate 90 mcg/actuation 2 puff inhalation R Q4HPRN PRN 02/27/24 02/27/24 History
aerosol inhaler (Ventolin HFA) sob/wheezing
baclofen 10 mg tablet 10 mg PO TID 02/27/24 02/27/24 History
brexpiprazole 2 mg tablet (Rexulti) 2 mg PO BID 02/27/24 02/27/24 History
doxepin 100 mg capsule 100 mg PO BID 02/27/24 02/27/24 History
duloxetine 60 mg capsule,delayed 60 mg PO BID 02/27/24 02/27/24 History
release
esomeprazole magnesium 40 mg 40 mg PO DAILY 02/27/24 02/27/24 History
capsule,delayed release
fluticasone furoate 50 50 mcg inhalation R DAILY 02/27/24 02/27/24 History
mcg/actuation blister powder for
inhalation (Arnuity Ellipta)
lurasidone 60 mg tablet 60 mg PO HS 02/27/24 02/27/24 History
oxycodone 10 mg tablet 10 mg PO TID 02/27/24 02/27/24 History
pregabalin 150 mg capsule 150 mg PO TID 02/27/24 02/27/24 History
quetiapine 25 mg tablet 25 mg PO TID 02/27/24 02/27/24 History
Review of Systems
-
History Source: Patient
All other systems: Negative unless noted
A 10 point review of systems was completed, and was negative except as per HPI.
Physical Exam
Vital Signs
Temp Pulse Resp BP Pulse Ox
98.5 F 75 16 113/70 99
02/27/24 15:59 02/27/24 15:59 02/27/24 15:59 02/27/24 15:59 02/27/24 15:59
02/26/24 02/27/24 02/28/24
06:59 06:59 06:59
Actual Weight 80.1 kg 79.605 kg
Body Mass Index (BMI) 30.1
Lab Results
02/26/24 22:53
02/26/24 22:53
WBC 12.1 10^3/uL (4.8-10.8) H 02/26/24 22:53
Hgb 11.6 g/dL (12.0-16.0) L 02/26/24 22:53
Hct 33.1 % (37.0-47.0) L 02/26/24 22:53
Plt Count 378 10^3/uL (130-400) 02/26/24 22:53
Abs Immat Gran (auto) 0.0 10^3/uL (0-0.05) 02/26/24 22:53
Neutrophils % 68.1 % (42.2-75.2) 02/26/24 22:53
Physical Exam
General: Well Developed, Well Nourished, No Apparent Distress and Other (Lying in hospital bed, comfortable for discussions/history taking)
HEENT: Normocephalic, Anicteric and Moist Mucous Membranes
Respiratory: Non Labored Respirations
Cardiac: Regular Rhythm
GI: Soft, Non Distended and Tender (Epigastrium left upper quadrant with localized voluntary guarding/rebound. Right upper quadrant, periumbilical and lower abdomen without tenderness)
Neuro: AO x 3
Psych: Calm
Data Reviewed
-
CT Scan: Image Personally Visualized and interpreted
Labs: Labs Reviewed by me
Assessment / Plan
-
Assessment: 43-year-old female with known chronic peptic ulcer disease, previous history of perforated gastric ulcers requiring laparotomy and Sammy patch repair in 2021 at outside hospital. Presenting with probable acute contained perforation of
chronic ulcerative disease. There is localizing tenderness in the epigastrium and left upper quadrant with some localized peritoneal signs but no diffuse peritonitis.
No evidence of sepsis, afebrile, vital signs stable
White blood cell count 12.1 hemoglobin 11.6 platelet count normal. Electrolyte panel within normal limits including BUN and creatinine. No evidence of acidosis.
Plan: Given complexity of patient's previous known ulcer disease and clinical stability recommend transfer to tertiary care center where her recent care and planned future surgical care has already been established.
While awaiting bed availability continue with bowel rest, IV fluid hydration and broad-spectrum empiric antibiotic coverage
PPI drip
Follow-up CBC/electrolytes in a.m. given stability and location of small fluid collections
If clinical change repeat CT imaging
Will follow while awaiting transfer
[2024-02-27 21:51] LABS: Hepatitis B Surface Antigen Negative (Negative)
[2024-02-27 22:09] LABS: Hepatitis B Core Ab, Total Negative (Negative); Hepatitis B Surface Antibody Positive; Hepatitis C Antibody Negative (Negative)
[2024-02-27 22:14] LABS: Hepatitis A Antibody, Total Negative (Negative)
[2024-02-28] MEDS: PROTONIX 100 IV ×2 (05:40→18:40)
[2024-02-28] MEDS: ZOFRAN 4 MG IV ×3 (05:43→17:54)
[2024-02-28] MEDS: DILAUDID 1 MG IV ×5 (05:43→23:26)
[2024-02-28 06:00] VITALS: BMI 29.7
[2024-02-28 06:33] LABS: Hematocrit 32.3 % (37.0-47.0); Hemoglobin 11.3 g/dL (12.0-16.0); Mean Corpuscular Hgb 30.8 pg (27.0-31.0); Mean Platelet Volume 10.6 fL (7.4-10.4); Platelet Count 350 10^3/uL (130-400); Red Blood Cell Count 3.67 10^6/uL (4.20-5.40); Red Cell Dist. Width 11.1 % (11.5-14.5); White Blood Cell Count 10.9 10^3/uL (4.8-10.8)
[2024-02-28 07:07] VITALS: BP 133/78
[2024-02-28 07:09] LABS: ALT (SGPT) 56 U/L (0-35); AST (SGOT) 40 U/L (14-36); Albumin 4.1 g/dl (3.5-5.0); Alkaline Phosphatase 148 U/L (38-126); Blood Urea Nitrogen 8 mg/dl (7-17); Calcium 9.2 mg/dl (8.4-10.2); Carbon Dioxide 25 mmol/L (22-30); Chloride 102 mmol/L (98-107); Direct Bilirubin 0.5 mg/dl (0.0-0.4); Estimated Creatinine Clearance 123 ml/min; Glucose 119 mg/dl (70-99); Sodium 136 mmol/L (135-145); Total Bilirubin 0.7 mg/dl (0.2-1.3); eGFR > 60.00
[2024-02-28] MEDS: LR 1000 IV ×3 (07:35→23:25)
[2024-02-28] MEDS: STERILE WATER FOR INJECTION 10 ML IV ×3 (07:37→23:26)
[2024-02-28] MEDS: MAXIPIME 2000 MG IV ×3 (07:37→23:25)
--- NOTE | 2024-02-28 09:03 | W.PN.GI.CBS2 ---
Today's Communication / Plan
-
Patient pending transfer to [facility]. General surgery following. GI will sign off.
Assessment / Plan
-
Izzy is a 43 y.o. female with pmhx PUD c/b perforation x2 s/p alan patch repair, pyloric stenosis s/p pyloric dilation, fatty liver, who presents with abdominal pain found to have a contained gastric perforation with small abscess.
#Contained gastric perforation, small abscess
-hx prior PUD w/ perforation s/p alan patch. Unclear if similar area of initial ulcer. If able to obtain records, this could be helpful
-transfer to tertiary care center ([facility]), awaiting available bed
-recommend covering with broad spectrum abx
-No role for endoscopic intervention at this time
-General surgery following, agree with deferring to known surgeon at [facility]
-continue PPI gtt
-NPO
#Elevated LFTs- hepatocellular pattern, AST > ALT--> improving
-EtOH level, salicylate, acetaminophen levels undetectable
-UDS+ opiates, oxy tricyclics, marijuana
-CK level WNL; hemolysis labs pending, but low suspicion for this
-Prior MRI from patient's portal reviewed-- known benign hepatic shunts, severe hepatic steatosis; given age and potential concomitant autoimmune condition,should have additional workup, labs pending
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
-it is unclear if she was ever given this diagnosis, no formal treatment was ever initiated and without evidence of eosinophils on most recent biopsies, I am not sure if this is accurate. If supposed etiology of initial perforations, would suspect
diffuse, severe disease and evidence on mucosal biopsies
-outpatient follow-up
#GOO?
-reported by patient, records reviewed, she has known pyloric stenosis, resulting in underlying dysmotility/gastroparesis type of picture
-s/p dilation without improvement, discussion with Dr. Forrest regarding surgical intervention-- prepyloric bypass. If no improvement with dilation, she would be unlikely to benefit from POEM and additionally, prior surgeries likely preclude her
from this as well
-no evidence of obstruction on imaging
-Opiates and marijuana are likely exacerbating her structural problem, further impairing gastric emptying
No role for GI intervention. Will sign off, please call with questions. Patient can follow-up with GI as an outpatient (at [facility] or [facility]) for management of her fatty liver disease and follow-up of pending serologic workup to rule out
alternative etiologies.
Subjective
Subjective
Date of Service: February 28, 2024
Patient seen in follow-up this morning. Remains afebrile and hemodynamically stable. Continues to have severe abdominal pain, no change from yesterday. Awaiting bed availability at [facility] for transfer.
Objective
Data Reviewed
Laboratory Data:
Laboratory Results
02/28/24 06:11
02/28/24 06:11
Laboratory Results
Total Bilirubin 0.7 mg/dl (0.2-1.3) 02/28/24 06:11
AST 40 U/L (14-36) H 02/28/24 06:11
ALT 56 U/L (0-35) H 02/28/24 06:11
Alkaline Phosphatase 148 U/L (38-126) H 02/28/24 06:11
Lipase 56 U/L (23-300) 02/26/24 22:53
Vital Signs and I&O:
Vital Signs
Temp Pulse Resp BP Pulse Ox
97.9 F 90 16 133/78 99
02/28/24 07:07 02/28/24 07:07 02/28/24 07:07 02/28/24 07:07 02/28/24 07:07
I&O
02/27/24 02/28/24 02/29/24
06:59 06:59 06:59
Intake Total 330 / 330
Balance 330 / 330
Physical Exam
Physical Exam
HEENT: Anicteric, Moist mucous membranes and Other (Appears uncomfortable 2/2 pain)
Cardiology: Normal Sinus Rhythm, S1 and S2
Pulmonary: Clear
GI: Soft, Non Distended, Tender and Other (+voluntary guarding )
Rectal: Other
Extremities: No Edema
Neuro: Non Focal
--- NOTE | 2024-02-28 14:09 | W.PN.HOSP.TC ---
Today's Communication/Plan
-
Bowel rest
IV fluids, IV antibiotics, IV PPI.
Follow CBC and BMP.
Patient accepted for transfer on 02/27 pending bed availability. Accepting physician Dr. Mcfadden.
Assessment / Plan
Assessment / Plan
Impression:
Patient is a 43y F with PMH significant for eosinophilic esophagitis / gastritis who presents to ED complaining of severe abdominal pain x 24 hours.
Contained gastric ulcer perforation
Elevated LFTs, hepatocellular pattern
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
Concern for gastric outlet obstruction
Chronic pain syndrome
Psychiatric history including schizophrenia, bipolar disorder, major depression
Plan:
Severe gastritis.
Gastric ulcer with contained perforation, possible abscess
Hemodynamically stable, afebrile.
Eosinophilic esophagitis/gastritis with prior history of perforation
CT imaging reviewed with radiologist confirming contained perforation with no free air. Imaging not suggestive of gastric outlet obstruction
Discussed with gastroenterology.
Continue bowel rest
IV PPI
IV fluids
Analgesic regimen with opiates.
Add antibiotics/cefepime (penicillin allergy)
Surgery consultation appreciated
Primary surgery at [facility] Dr. Forrest.
Patient accepted for transfer on 02/27 pending bed availability. Accepting physician Dr. Mcfadden.
Gastric outlet obstruction by history
Patient has a history of pyloric stenosis.
Current imaging not consistent with acute obstruction.
Patient is scheduled for pyloric bypass surgery at [facility] from March 25
Elevated LFTs, AST greater than ALT.
In review of prior imaging consistent with hepatic steatosis.
Agree with checking alcohol/Tylenol levels
Follow
Mental Health
- Various diagnoses including schizophrenia, bipolar disorder, major depression, etc.
- Hold all PO medications acutely given ulceration / likely perforation.
- Resume PO meds when appropriate to do so.
Chronic Pain Syndrome
Fibromyalgia
Chronic Opioid Dependence
- As noted above - holding all PO medications.
- IV narcotics as needed for acute pain.
- Resume PO regimen when appropriate to do so.
DVT Prophylaxis: SCDs
Anticipated Discharge: Within 24 hours
Subjective/Interval History
-
Date of Service: February 28, 2024
Objective Data
-
Labs:
Laboratory Results
02/28/24
06:11
WBC 10.9 H
Hgb 11.3 L
Hct 32.3 L
Plt Count 350
Sodium 136
Potassium 4.0
Chloride 102
Carbon Dioxide 25
BUN 8
Creatinine 0.5 L
Glucose 119 H
Calcium 9.2
Total Bilirubin 0.7
AST 40 H
ALT 56 H
Alkaline Phosphatase 148 H
Vital Signs:
Vital Signs
Temp Pulse Resp BP Pulse Ox
97.9 F 90 16 133/78 99
02/28/24 07:07 02/28/24 07:07 02/28/24 07:07 02/28/24 07:07 02/28/24 07:07
I&O
02/27/24 02/28/24 02/29/24
06:59 06:59 06:59
Intake Total 330 / 330
Balance 330 / 330
Physical Exam
-
General: Well Developed and No Apparent Distress
HEENT: Normocephalic, Atraumatic and Moist Mucous Membranes
Respiratory: Clear to Auscultation
Cardiac: Regular Rhythm and S1/S2; Negative Murmur, Rub or Gallop
GI: Soft, Nondistended, Normal Bowel Sounds and Tender (Mid epigastric tenderness with rebound); Negative Organomegaly
Rectal: Deferred by Provider
Musculoskeletal: No Clubbing, No Cyanosis and No Edema
Skin: Negative Rash
Neuro: Awake, Alert, Oriented and Nonfocal/Grossly Intact
--- NOTE | 2024-02-28 14:33 | W.PN.GS2 ---
Today's Communication / Plan
-
-- No changes
Assessment / Plan
-
Patient is a 43 yo F p/w acute contained perforation of chronic ulcerative disease
Clinically pain improving
AVSS, WBC trending down
Given complexity of patient's previous known ulcer disease and clinical stability recommend transfer to tertiary [facility] where her recent care and planned future surgical care has already been established.
While awaiting bed availability continue with bowel rest, IV fluid hydration and broad-spectrum empiric antibiotic coverage
-- NPI IVF
-- PPI drip
-- Follow-up CBC/electrolytes in a.m. given stability and location of small fluid collections
-- If clinical change repeat CT imaging
-- Will follow while awaiting transfer
Subjective Data
-
Date of Service: February 28, 2024
Pain mildly improved though not resolved. No fevers. No nausea or vomiting.
Objective Data
-
Intake and Output
02/27/24 02/28/24 02/29/24
06:59 06:59 06:59
Intake Total 330 / 330
Balance 330 / 330
Intake:
IV fluids (Total) 330 / 330
Other:
Number of approximated MODERATE 2
amounts of urine
Vital Signs
Temp Pulse Resp BP Pulse Ox
97.9 F 90 16 133/78 99
02/28/24 07:07 02/28/24 07:07 02/28/24 07:07 02/28/24 07:07 02/28/24 07:07
Lab Results
02/28/24 06:11
02/28/24 06:11
Calcium 9.2 mg/dl (8.4-10.2) 02/28/24 06:11
Total Bilirubin 0.7 mg/dl (0.2-1.3) 02/28/24 06:11
Direct Bilirubin 0.5 mg/dl (0.0-0.4) H 02/28/24 06:11
AST 40 U/L (14-36) H 02/28/24 06:11
ALT 56 U/L (0-35) H 02/28/24 06:11
Alkaline Phosphatase 148 U/L (38-126) H 02/28/24 06:11
Total Protein 7.0 g/dl (6.3-8.2) 02/28/24 06:11
Albumin 4.1 g/dl (3.5-5.0) 02/28/24 06:11
Physical Exam
-
Gen: NAD
Abd: soft, tender in LUQ, ND, non-peritoneal
[2024-02-28 14:56] VITALS: BP 137/86
[2024-02-28 23:15] VITALS: BP 128/75
[2024-02-29] MEDS: ZOFRAN 4 MG IV ×5 (00:01→20:42)
[2024-02-29] MEDS: DILAUDID 1 MG IV ×5 (03:51→20:41)
[2024-02-29] MEDS: PROTONIX 100 IV ×2 (03:56→15:25)
[2024-02-29 06:00] VITALS: BMI 29.3
[2024-02-29 07:00] VITALS: BP 124/75
[2024-02-29 07:36] LABS: % Basophils 0.5 % (0-2); % Eosinophils 0.5 % (0-6); % Immature Granulocytes 0.5 % (0-0.5); % Monocytes 6.9 % (1.7-9.3); % Neutrophils 73.6 % (42.2-75.2); Absolute Basophils 0.1 10^3/uL (0-0.2); Absolute Eosinophils 0.1 10^3/uL (0-0.7); Absolute Immature Granulocytes 0.1 10^3/uL (0-0.05); Absolute Lymphocytes 1.8 10^3/uL (1.2-3.4); Absolute Monocytes 0.7 10^3/uL (0.1-0.6); Absolute Neutrophils 7.3 10^3/uL (1.4-6.5); Hematocrit 31.2 % (37.0-47.0); Hemoglobin 10.8 g/dL (12.0-16.0); Mean Corp Hgb Conc. 34.6 g/dL (33.0-37.0); Mean Corpuscular Hgb 30.3 pg (27.0-31.0); Mean Corpuscular Volume 87.6 fL (81.0-99.0); Mean Platelet Volume 10.8 fL (7.4-10.4); Nucleated Red Blood Cells % 0 %; Platelet Count 375 10^3/uL (130-400); Red Blood Cell Count 3.56 10^6/uL (4.20-5.40); Red Cell Dist. Width 11.1 % (11.5-14.5); White Blood Cell Count 9.9 10^3/uL (4.8-10.8)
[2024-02-29 07:55] LABS: Blood Urea Nitrogen 8 mg/dl (7-17); Calcium 9.3 mg/dl (8.4-10.2); Carbon Dioxide 21 mmol/L (22-30); Chloride 103 mmol/L (98-107); Estimated Creatinine Clearance 122 ml/min; Glucose 109 mg/dl (70-99); Potassium 3.7 mmol/L (3.5-5.1); Sodium 135 mmol/L (135-145); eGFR > 60.00
[2024-02-29] MEDS: MAXIPIME 2000 MG IV ×2 (08:33→15:42)
[2024-02-29] MEDS: STERILE WATER FOR INJECTION 10 ML IV ×2 (08:34→15:42)
--- NOTE | 2024-02-29 09:13 | W.PN.GS2 ---
Today's Communication / Plan
-
-- No changes from surgical perspective
Assessment / Plan
-
Patient is a 43 yo F p/w acute contained perforation of chronic ulcerative disease
Clinically pain improving
AVSS, WBC trending down
Given complexity of patient's previous known ulcer disease and clinical stability recommend transfer to tertiary [facility] where her recent care and planned future surgical care has already been established. While awaiting bed availability
continue with bowel rest, IV fluid hydration and broad-spectrum empiric antibiotic coverage
-- NPI IVF
-- PPI drip
-- Follow-up CBC/electrolytes in a.m. given stability and location of small fluid collections
-- If clinical change repeat CT imaging
-- Will follow while awaiting transfer
Subjective Data
-
Date of Service: February 29, 2024
No new complaints. Mild nausea. no worsening abdominal pain.
Objective Data
-
Intake and Output
02/28/24 02/29/24 03/01/24
06:59 06:59 06:59
Intake Total 330 / 330 1200 / 1200
Balance 330 / 330 1200 / 1200
Intake:
IV fluids (Total) 330 / 330 1200 / 1200
Other:
Number of approximated MODERATE 2 2
amounts of urine
Vital Signs
Temp Pulse Resp BP Pulse Ox
98.4 F 76 18 124/75 98
02/29/24 07:00 02/29/24 07:00 02/29/24 07:00 02/29/24 07:00 02/29/24 07:00
Lab Results
02/29/24 07:19
02/29/24 07:19
Calcium 9.3 mg/dl (8.4-10.2) 02/29/24 07:19
Total Bilirubin 0.7 mg/dl (0.2-1.3) 02/28/24 06:11
Direct Bilirubin 0.5 mg/dl (0.0-0.4) H 02/28/24 06:11
AST 40 U/L (14-36) H 02/28/24 06:11
ALT 56 U/L (0-35) H 02/28/24 06:11
Alkaline Phosphatase 148 U/L (38-126) H 02/28/24 06:11
Total Protein 7.0 g/dl (6.3-8.2) 02/28/24 06:11
Albumin 4.1 g/dl (3.5-5.0) 02/28/24 06:11
Physical Exam
-
Gen: NAD, jittery
Abd: soft, NT/ND, non-peritoneal
--- NOTE | 2024-02-29 12:05 | CM ---
Spoke with pt at bedside
Lives with her fiance and son in a 2 story apartment
Describes self needing assistance with adl's/ambulation - An is her [employer]ILITY [employer]INE[employer], receives 56 hours/week
DME includes cane and rolling walker
Denies past SNF/HH
Plan is to transfer to [facility] when bed becomes available
PCP - Dr Queen
Pharm - [facility]
Plan - transfer to [facility] when bed available
--- NOTE | 2024-02-29 13:01 | W.PN.HOSP.TC ---
Today's Communication/Plan
-
awaiting transfer [facility]
continue IVF/pain meds
Assessment / Plan
Assessment / Plan
Patient is a 43y F with PMH significant for eosinophilic esophagitis / gastritis who presents to ED complaining of severe abdominal pain x 24 hours.
Impression:
Contained gastric ulcer perforation
Elevated LFTs, hepatocellular pattern
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
Concern for gastric outlet obstruction
Chronic pain syndrome
Psychiatric history including schizophrenia, bipolar disorder, major depression
Plan:
Severe gastritis.
Gastric ulcer with contained perforation, possible abscess
Hemodynamically stable, afebrile.
Eosinophilic esophagitis/gastritis with prior history of perforation
CT imaging reviewed with radiologist confirming contained perforation with no free air. Imaging not suggestive of gastric outlet obstruction
Discussed with gastroenterology.
Continue bowel rest
maintain on IV PPI and IVF
Analgesic regimen with opiates.
Continue on cefepime (penicillin allergy)
Surgery consultation appreciated
Primary surgery at [facility] Dr. Forrest. Patient accepted for transfer on 02/27 pending bed availability. Accepting physician Dr. Mcfadden.
Gastric outlet obstruction by history
Patient has a history of pyloric stenosis.
Current imaging not consistent with acute obstruction.
Patient is scheduled for pyloric bypass surgery at [facility] from March 25
Elevated LFTs, AST greater than ALT.
In review of prior imaging consistent with hepatic steatosis.
Alc/tylenol level neg. copper level pending.
Mental Health
Various diagnoses including schizophrenia, bipolar disorder, major depression, etc.
Hold all PO medications acutely given ulceration / likely perforation.
Resume PO meds when appropriate to do so.
Chronic Pain Syndrome , Fibromyalgia , Chronic Opioid Dependence
As noted above - holding all PO medications.
IV narcotics as needed for acute pain.
Resume PO regimen when appropriate to do so.
DVT Prophylaxis: SCDs
Anticipated Discharge: Today
Subjective/Interval History
-
Date of Service: February 29, 2024
Complaining feeling tired/fatigued
Some minimal abdominal discomfort
No nausea vomiting
Objective Data
-
Labs:
Laboratory Results
02/29/24
07:19
WBC 9.9
Hgb 10.8 L
Hct 31.2 L
Plt Count 375
Sodium 135
Potassium 3.7
Chloride 103
Carbon Dioxide 21 L
BUN 8
Creatinine 0.5 L
Glucose 109 H
Calcium 9.3
Vital Signs:
Vital Signs
Temp Pulse Resp BP Pulse Ox
98.4 F 76 18 124/75 98
02/29/24 07:00 02/29/24 07:00 02/29/24 07:00 02/29/24 07:00 02/29/24 07:00
I&O
02/28/24 02/29/24 03/01/24
06:59 06:59 06:59
Intake Total 330 / 330 1200 / 1200
Balance 330 / 330 1200 / 1200
Review of Systems
-
Respiratory: Reports No Symptoms
Cardiac: Reports No Symptoms
Abdomen/GI: Reports Abdominal Pain; Denies Nausea or Vomiting
Physical Exam
-
General: No Apparent Distress
HEENT: Moist Mucous Membranes
Respiratory: Clear to Auscultation
Cardiac: Regular Rhythm and S1/S2; Negative Murmur, Rub or Gallop
GI: Soft, Nondistended and Tender (Mid epigastric tenderness with rebound); Negative Organomegaly
Musculoskeletal: No Edema
Skin: Negative Rash
Neuro: Awake, Alert, Oriented and Nonfocal/Grossly Intact
[2024-02-29] MEDS: LR 1000 IV (14:46)
[2024-02-29 15:00] VITALS: BP 133/72
[2024-02-29 21:00] VITALS: BP 131/85
[2024-02-29 21:01] LABS: Alpha-1-Antitrypsin 188 mg/dL (90-200); Haptoglobin 248 mg/dL (30-200)
[2024-02-29 22:13] LABS: F-Actin Antibody IgG 12 Units (0-19); Mitochondrial M2 Ab, IgG 2.3 Units (0.0-24.9)
[2024-03-01 01:23] LABS: LKM-1 Ab (IgG) 1.3 U (0.0-24.9)
[2024-03-01 21:29] LABS: Soluble Liver Antigen Ab 1.4 U (0.0-24.9)
--- NOTE | 2024-03-13 13:41 | W.DCSUMMARY ---
Discharge Summary
Discharge Data
Date of Admission: 02/27/24
Date of Discharge: 02/29/24
-
Pending Results: No
Hospital Course
Discharging Physician : Dr Pool Fernandez
Disposition : [facility]
Primary care physician : Dr Bret Mendoza
Principal Discharge diagnosis :
Contained perforated gastric ulcer
Elevated liver enzymes
Chronic Discharge diagnosis :
Eosinophilic gastritis
History of peptic ulcer disease
History of gastric outlet obstruction
Chronic pain and narcotic dependence
Schizophrenia/bipolar disorder
Hospital Course :
Patient is a 43-year-old female with above-mentioned past medical history came to ER with new onset of abdominal pain. Patient having episodic nausea and vomiting for last few weeks and apparently have undergone surgery for gastric outlet
obstruction in the past. Patient also history of perforated gastric ulcer in requiring surgical repair at [facility]. CT abdomen pelvis was done in ER which showed possible concern of contained perforated ulcer. Case was discussed
with GI and general surgery who recommended patient to be maintained nothing by mouth and on PPI drip. Due to patient known complex GI history patient was recommended to be transferred to [facility] for further care. Patient was
maintained on empiric IV antibiotics and IV fluid at and was transferred to [facility] once bed available.
Important imaging findings :
None
Procedure findings :
None
Discharge Plan
-
Patient Disposition: Acute Care Hospital
Discharge Orders:
Discharge Patient (As Directed); Ordered 02/28/24
Ordered By: Eliazar Elias
Discharge Date and Time
Discharge Date/Time: 02/29/24 21:43
Print Language: EQUATORIAL GUINEAN
== END 2024-02-29 21:43 | disposition short-term general hospital (02) | DRG 391 ==
LOC: 3 WEST ACU 06:43
PROVIDERS: Emergency Medicine; Internal Medicine; ADMITTING PHYSICIAN Hospitalist; ATTENDING PHYSICIAN Hospitalist; EMERGENCY PHYSICIAN Emergency Medicine; FAMILY PHYSICIAN Internal Medicine; OTHER PHYSICIAN Internal Medicine; OTHER PHYSICIAN Surgery
DX: K52.81 Eosinophilic gastritis or gastroenteritis (principal); K25.5 Chronic or unspecified gastric ulcer with perforation; F11.20 Opioid dependence, uncomplicated; K31.1 Adult hypertrophic pyloric stenosis; F31.9 Bipolar disorder, unspecified; F20.9 Schizophrenia, unspecified; M79.7 Fibromyalgia; K20.0 Eosinophilic esophagitis; M54.9 Dorsalgia, unspecified; R10.13 Epigastric pain; N80.9 Endometriosis, unspecified; K76.0 Fatty (change of) liver, not elsewhere classified; K21.9 Gastro-esophageal reflux disease without esophagitis; G89.4 Chronic pain syndrome; K42.9 Umbilical hernia without obstruction or gangrene; Z90.49 Acquired absence of other specified parts of digestive tract; Z87.891 Personal history of nicotine dependence; Z90.710 Acquired absence of both cervix and uterus; Z88.0 Allergy status to penicillin; Z88.8 Allergy status to other drugs, medicaments and biological substances; Z91.041 Radiographic dye allergy status; Z79.51 Long term (current) use of inhaled steroids
CPT/HCPCS: 74177; 80048; 80053; 80143; 80179; 80306; 80307; 81003; 81015; 82077; 82103; 82248; 82525; 82550; 82728; 83010; 83516; 83615; 83690; 84703; 85025; 85027; 86015; 86376; 86381; 86704; 86706; 86708; 86803; 87040; 87086; 87340; 96361; 96365; 96366; 96375; 96376; 99285; Q9967